=== PATIENT | female | born 1970 | race Caucasian/White ===

== ENCOUNTER → 2021-02-19 09:41 | Outpatient (CLI) | payer OTHER, MEDICAID, SELFPAY ==
[2021-02-19 20:01] LABS: Add Manual Diff / Slide Review NO; Basophils Absolute Auto 0 /uL (0-100); Basophils Percent Auto 0.4 % (0-2); Eosinophils Absolute Auto 200 /uL (0-450); Eosinophils Percent Auto 4.4 % (2-4); Hematocrit 38.8 % (36-46); Lymphocytes Absolute Auto 1400 /uL (1100-4500); Lymphocytes Percent Auto 26.4 % (25-40); Mean Corpuscular HGB Conc 33.6 % (30-36); Mean Corpuscular Hemoglobin 30.4 PG (26-34); Mean Corpuscular Volume 90.6 fL (80-100); Monocytes Absolute Auto 300 /uL (0-900); Monocytes Percent Auto 5.8 % (3-14); Neutrophils Absolute Auto 3400 /uL (1500-7000); Platelet Count 309 X10^3/uL (150-400); Red Blood Cell Count 4.28 X10^6/uL (4.0-5.2); Red Cell Distribution Width 13.3 % (11.6-14.8); White Blood Cell Count 5.4 X10^3/uL (4.5-11.0)
[2021-02-19 20:05] LABS: Alanine Aminotransferase 15 IU/L (<35); Albumin Globulin Ratio 1.5 (1.0-2.8); Alkaline Phosphatase 55 U/L (38-126); Aspartate Aminotransferase 28 IU/L (14-36); BUN Creatinine Ratio 21.9 (6-22); Bilirubin Total 0.4 mg/dL (0.2-1.3); Blood Urea Nitrogen 14 mg/dL (7-17); Calcium 9.5 mg/dL (8.4-10.2); Carbon Dioxide 32 mmol/L (22-32); Chloride 102 mmol/L (98-107); Cholesterol 172 mg/dL (140-199); Estimated Glomerular Filt Rate > 60.0 mL/min (>60); Globulin 2.7 g/dL (1.7-4.1); Glucose 77 mg/dL (70-100); HDL Cholesterol 60 mg/dL (40-60); HEMOLYSIS < 15 (0-50); LDL Cholesterol Calculated 94 mg/dL (<100); Potassium 3.9 mmol/L (3.4-5.1); Sodium 138 mmol/L (137-145); Total Protein 6.7 g/dL (6.3-8.2); Triglycerides 88 mg/dL (35-150)
[2021-02-19 20:08] LABS: Hemoglobin A1C% w Est Avg Glu 5.3 % (4.0-6.0)
[2021-02-19 20:23] LABS: Follicle Stimulating Hormone 61.4 mIU/mL
[2021-02-19 20:38] LABS: TSH w/ Reflex to FT4 2.43 uIU/mL (0.47-4.68)
[2021-02-19 20:50] LABS: HIV 1 & 2 Ab/Ag 4th Gen Combo NEGATIVE (NEGATIVE)
[2021-02-19 20:56] LABS: Vitamin B12 461 pg/mL (239-931)
[2021-02-21 08:49] LABS: RPR Screen Non Reactive (Non Reactive)
[2021-02-22 07:04] LABS: Chlamydia trachomatis NAA Negative (Negative); Neisseria gonorrhoeae NAA Negative (Negative)
[2021-02-22 14:36] LABS: Vitamin A 53.1 ug/dL (20.1-62.0)
== END ==
PROVIDERS: PCP Family Medicine; Visit Provider Physician Assistant
DX: L29.9 Pruritus, unspecified (principal); R53.83 Other fatigue; R61 Generalized hyperhidrosis; R63.4 Abnormal weight loss; Z11.3 Encounter for screening for infections with a predominantly sexual mode of transmission
CPT/HCPCS: 80053; 80061; 81002; 82306; 82607; 83001; 83036; 84443; 84590; 85025; 86592; 87389; 87491; 87591